=== PATIENT | male | born 2000 | race Two or more races ===

== ENCOUNTER 2021-11-08 14:35 | Emergency (ER) | payer OTHER ==
[2021-11-08 14:57] VITALS: BP 147/86; TEMP 98.2; BMI 26.0
[2021-11-08] MEDS ORDERED: KETOROLAC TROMETHAMINE 30 MG/1 ML VIAL IM ONE (15:22)
[2021-11-08] MEDS ORDERED: METOCLOPRAMIDE HCL INJECTION 10 MG/2 ML VIAL IM ONE (15:23)
[2021-11-08] MEDS ORDERED: KETOROLAC TROMETHAMINE 30 MG/1 ML VIAL ONE (15:27)
[2021-11-08] MEDS ORDERED: METOCLOPRAMIDE HCL INJECTION 10 MG/2 ML VIAL ONE (15:27)
[2021-11-08 17:21] VITALS: PULSE 84
== END 2021-11-08 17:00 | disposition home or self-care (01) ==
LOC: JER 14:35 → JERFT 14:35
PROC: 3E023GC Introduction of Other Therapeutic Substance into Muscle, Percutaneous Approach (ICD-10-PCS; principal; 2021-11-08)
DX: G93.0 Cerebral cysts (principal); R51.9 Headache, unspecified
CPT/HCPCS: 70450-TC; 99284-25

== ENCOUNTER 2021-11-10 19:03 | Emergency (ER) | payer OTHER ==
[2021-11-10 19:10] VITALS: BP 130/81; PULSE 124; TEMP 98.1; BMI 26.0
[2021-11-10] MEDS ORDERED: ACETAMINOPHEN 1000 MG/100 ML BAG IVPB ONE (19:59)
[2021-11-10] MEDS ORDERED: SODIUM CHLORIDE 1,000 ML IV STA (19:59)
[2021-11-10] MEDS ORDERED: METOCLOPRAMIDE HCL INJECTION 10 MG/2 ML VIAL IVPUSH ONE (19:59)
[2021-11-10 20:34] LABS: BASO % 0.6 % (0-2.0); EOS % 0.9 % (0-4.5); HEMATOCRIT 40.3 % (35.4-49); HEMOGLOBIN 12.9 GM/dL (11.7-16.9); LYMPH % 13.5 % (8-40); MCHC 32.1 g/dl (32.0-35.9); MEAN CELL VOLUME 59.1 fl (80-96); MEAN PLT VOLUME 8.6 fl (7.5-11.1); MONO % 12.8 % (3.8-10.2); NEUT % 72.2 % (42.8-82.8); PLATELET COUNT 244 10^3/uL (134-434); RBC 6.82 M/mm3 (4.00-5.60); RDW 16.2 % (11.9-15.9); WHITE BLOOD COUNT 6.6 K/mm3 (4.0-10.0)
[2021-11-10 20:54] LABS: CALCIUM 8.9 mg/dL (8.5-10.1)
[2021-11-10 20:55] LABS: ALBUMIN 4.7 g/dl (3.4-5.0); BLOOD UREA NITROGEN 12.9 mg/dL (7-18)
[2021-11-10 21:00] LABS: TOT PROT 7.8 g/dl (6.4-8.2)
[2021-11-10 21:14] LABS: ANISOCYTOSIS 2+; MACROCYTOSIS 0; TARGET CELLS 1+
[2021-11-10] MEDS ORDERED: ACETAMINOPHEN INJECTION 100 ML IVPB ONE (22:22)
[2021-11-10] MEDS ORDERED: METOCLOPRAMIDE HCL INJECTION 10 MG/2 ML VIAL ONE (22:22)
[2021-11-12 17:06] LABS: SARS-CoV-2 NAA Not Detected (Not Detected)
== END 2021-11-10 23:03 | disposition home or self-care (01) ==
LOC: JER 19:03
PROC: 3E0333Z Introduction of Anti-inflammatory into Peripheral Vein, Percutaneous Approach (ICD-10-PCS; principal; 2021-11-10)
PROC: 3E0233Z Introduction of Anti-inflammatory into Muscle, Percutaneous Approach (ICD-10-PCS; 2021-11-10)
PROC: 3E033GC Introduction of Other Therapeutic Substance into Peripheral Vein, Percutaneous Approach (ICD-10-PCS; 2021-11-10)
PROC: 3E0337Z Introduction of Electrolytic and Water Balance Substance into Peripheral Vein, Percutaneous Approach (ICD-10-PCS; 2021-11-10)
DX: G93.0 Cerebral cysts (principal)
CPT/HCPCS: 36415; 70553-TC; 80053; 85025; 99284-25; C9803; U0003; U0005

== ENCOUNTER 2022-02-01 03:06 | Emergency (ER) | payer OTHER ==
[2022-02-01 03:23] VITALS: BP 124/85; PULSE 100; TEMP 100.6; BMI 26.0
[2022-02-01] MEDS ORDERED: ACETAMINOPHEN/CAFFEINE/BUTALBITAL 1 TAB PO ONE (03:53)
[2022-02-01] MEDS ORDERED: METOCLOPRAMIDE HCL INJECTION 10 MG/2 ML VIAL IM ONE (03:54)
[2022-02-01] MEDS ORDERED: ACETAMINOPHEN/CAFFEINE/BUTALBITAL 1 TAB ONE (04:41)
[2022-02-01] MEDS ORDERED: METOCLOPRAMIDE HCL INJECTION 10 MG/2 ML VIAL ONE (04:41)
== END 2022-02-01 06:17 | disposition home or self-care (01) ==
LOC: JER 03:06
PROC: 3E023GC Introduction of Other Therapeutic Substance into Muscle, Percutaneous Approach (ICD-10-PCS; principal; 2022-02-01)
DX: B34.9 Viral infection, unspecified (principal)
CPT/HCPCS: 0241U-QW; 71045-TC-FY; 87651; 93005; 93010; 99285-25